=== PATIENT | female | born 1995 | race Caucasian/White ===

== ENCOUNTER → 2016-10-26 | Outpatient (CLI) | payer OTHER ==
[~2016-10-26] VITALS: Ht 162.6 cm; Wt 79.4 kg
[~2016-10-26] MED LIST: IFERCAP PO; MULT1TAB10 PO; NS 1,000 ML IV SCH; PROPOFOL 200 MG/20 ML VIAL As Ordered ONE
--- NOTE | 2016-10-26 15:13 | ROOR ---
Patient Name: Kenisha Washington Procedure Date: 10/26/2016 2:50 PM Date of : 1995 Age: 21 Room: [facility] Gender: Female Note Status: Finalized Procedure: Upper GI endoscopy Indications: Surveillance for malignancy due to personal history of Familial Adenomatous Polyposis Providers: Carlos GAUTHIER MD Referring MD: Jesusita SANDERS MD Requesting Provider: Medicines: Monitored Anesthesia Care Complications: No immediate complications. Procedure: Pre-Anesthesia Assessment: - The heart rate, respiratory rate, oxygen saturations, blood pressure, adequacy of pulmonary ventilation, and response to care were monitored throughout the procedure. The Endoscope was introduced through the mouth, and advanced to the second part of duodenum. The upper GI endoscopy was accomplished without difficulty. The patient tolerated the procedure well. Findings: Multiple small semi-sessile polyps with no bleeding and no stigmata of recent bleeding were found in the gastric fundus and in the gastric body. This was biopsied with a cold forceps for histology. The gastric antrum was normal. The examined esophagus was normal. The examined duodenum was normal. Impression: - Multiple (>100) gastric polyps. These all appear hyperplastic. No significant adenomatous polyp is seen. Many polyps were randomly Biopsied. - Normal antrum. - Normal esophagus. - Normal examined duodenum. Recommendation: - Await pathology results. - Telephone endoscopist for pathology results in 2 weeks. - Repeat upper endoscopy in 1 year for surveillance. Carlos Gauthier MD Carlos GAUTHIER MD 10/26/2016 3:13:21 PM This report has been signed electronically. Number of Addenda: 0 Note Initiated On: 10/26/2016 2:50 PM Estimated Blood Loss: Estimated blood loss: none.
--- NOTE | 2016-10-26 15:23 | ROOR ---
Patient Name: Kenisha Washington Procedure Date: 10/26/2016 2:52 PM Date of : 1995 Age: 21 Room: OP02 Gender: Female Note Status: Finalized Procedure: Pouchoscopy Indications: History of total colectomy, History of familial polyposis Providers: Carlos GAUTHIER MD Referring MD: Jesusita SANDERS MD Requesting Provider: Complications: No immediate complications. Procedure: The Endoscope was introduced through the anus and advanced to the J-pouch. The anoscopy was accomplished without difficulty. The patient tolerated the procedure well. The quality of the bowel preparation was good. Findings: Patient is status-post total colectomy with an ileal pouch-anal anastomosis. The perianal and digital rectal examinations were normal. The ileoanal pouch appeared normal. anastomosis is within 1 cm of anal canal. There are no polyps or lesions in the anal canal. Impression: - The ileoanal pouch is normal. - Anastomosis is within 1 cm of anal canal. There are no polyps or lesions in the anal canal. - No specimens collected. Recommendation: - Repeat post-surgical lower GI endoscopy in 1 year for surveillance. Carlos Gauthier MD Carlos GAUTHIER MD 10/26/2016 3:22:51 PM This report has been signed electronically. Number of Addenda: 0 Note Initiated On: 10/26/2016 2:52 PM Estimated Blood Loss: Estimated blood loss: none.
[2016-10-26 15:45] VITALS: BP 116/67
== END | disposition home or self-care (01) ==
LOC: M OPP 11:58
PROVIDERS: ATTEND Internal Medicine Gastroenterology
DX: Z09 Encounter for follow-up examination after completed treatment for conditions other than malignant neoplasm (principal); Z86.010 Personal history of colon polyps; Z90.49 Acquired absence of other specified parts of digestive tract; K31.7 Polyp of stomach and duodenum; D50.9 Iron deficiency anemia, unspecified; R06.83 Snoring; Z87.891 Personal history of nicotine dependence

== ENCOUNTER 2016-11-26 19:48 | Emergency (ER) | payer OTHER ==
[~2016-11-26] VITALS: Ht 162.6 cm; Wt 79.4 kg
[~2016-11-26 19:48] MED LIST changes: -NS 1,000 ML IV SCH; -PROPOFOL 200 MG/20 ML VIAL As Ordered ONE
[2016-11-26] MEDS ORDERED: NORCO 5/325MG TABLET (BULK) As Ordered ONE (20:22)
[2016-11-26] MEDS ORDERED: CORTISPORIN OTIC SOLN 10 ML BTL XX SCH (20:35)
--- NOTE | 2016-11-26 20:49 | EDDOCDS ---
Nurse's Notes [facility] Name: Kenisha Washington Age: 21 yrs Sex: Female : 1995 Arrival Date: 11/26/2016 Time: 19:48 Bed I8 / 16 Private MD: Diagnosis: Otitis externa Presentation: 11/26 19:52 Presenting complaint: Patient states: left ear pain since yesterday. Adult Sepsis ttb Screening: The patient does not have new or worsening altered mentation. Patient's respiratory rate is less than 22. Systolic blood pressure is greater than 100. Patient has a qSOFA score of 0- Negative Sepsis Screen. Suicide/Homicide risk assessment- the patient denies having any suicidal and/or homicidal ideations and does not present with any other emotional, behavioral or mental health complaints. Status: The patient is a dependent. Transition of care: patient was not received from another setting of care. 19:52 Acuity: BOOM Level 5 ttb 19:52 Method Of Arrival: Walkin/Carried/Asstd ttb Triage Assessment: 19:55 General: Appears in no apparent distress, uncomfortable, well nourished, well groomed, ttb Behavior is appropriate for age, cooperative, pleasant. Pain: Location: left ear, jaw Pain currently is 8 out of 10 on a pain scale. HIV screening NA for this visit Offered previously. Neurological: Level of Consciousness is awake, alert. EENT: Ear canal Reports pain in left ear. Respiratory: No deficits noted. Airway is patent. Derm: Skin is normal. 19:55 Injury Description: No known injury. 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 none - PMHx: papillary thyroid carcinoma; atrial septal defect as child; "familial adenosis polyposis"; anemia; - PSHx: open heart surgery 1997; colonectomy 2006; ileostomy placement and reversal; - Social history: Smoking status: Patient states was never smoker of tobacco. Patient/guardian denies using alcohol, street drugs, No barriers to communication noted, The patient speaks fluent Indonesian, Speaks appropriately for age. - Family history: Not pertinent. - : The pt / caregiver states he / she is not on anticoagulants. Home medication list is obtained from the patient. - Exposure Risk Screening:: None identified. Screenin:41 Screening information is obtained from the patient. Fall risk: No risks identified. rs3 Assistance ADL's: requires no assistance with activities of daily living. Abuse/DV Screen: The patient / caregiver reports he/she is: not in a situation that causes fear, pain or injury. Nutritional screening: No deficits noted. Advance Directives: Currently, there is no health care proxy. home support is adequate. Assessment: 20:40 General: Appears in no apparent distress, Behavior is appropriate for age, cooperative. rs3 Pain: Location: right ear and left ear. Neurological: Level of Consciousness is awake, alert. EENT: Tympanic membrane reddened on left ear bulging on left ear and right ear Ear canal erythematous L. Derm: Skin is pink, warm & dry. Vital Signs: 19:50 BP 136 / 66; Pulse 84; Resp 18; Temp 98.1(O); Pulse Ox 100% on R/A; Weight 79.38 kg fran (R); Height 64 in. (162.56 cm) (R); Pain 8/10; 19:50 Body Mass Index 30.04 (79.38 kg, 162.56 cm) fran Vitals: 19:50 Log In Time: November 26, 2016 at 19:50. fran ED Course: 19:50 Patient visited by Traci Lopez PCA. fran 19:50 Patient moved to Waiting fran 19:51 Patient moved to Pre RCE fran 19:53 Triage Initiated ttb 19:56 Patient visited by Fouzia Quiros RN. ttb 20:04 Patient moved to I8 / 16 ms18 20:05 Harvinder Spivey FNP is [facility]. ke 20:05 Patient visited by Harvinder Spivey FNP. ke 20:05 Patient visited by Harvinder Spivey FNP. ke 20:47 The patient / caregiver is instructed regarding the plan of care and ED course. mf4 20:47 No IV's were initiated during this patient's visit. No procedures done that require mf4 assistance. Administered Medications: 20:40 Drug: HYDROcodone-acetaminophen 4 pack- 1 packets [hydrocodone 5 mg-acetaminophen 325 rs3 mg tablet (1 tabs)] {Co-Signature: slmercedes (Leah Mc LPN).} Route: PO; 20:46 Drug: Eqdxnudi-Qoppvbqkl-NT 4 drps [cbntavni-jryxpeqif-kgcityqyx 3.5 mg/mL-10,000 mf4 unit/mL-1 % ear solution (4 drps)] Route: Otic; Site: both ears; Order Results: There are currently no results for this order. Outcome: 20:15 Discharge ordered by Provider. ke 20:47 Discharge Assessment: Patient awake, alert and oriented x 3. No cognitive and/or mf4 functional deficits noted. Patient verbalized understanding of disposition instructions. patient administered narcotics - no. The following High Risk Discharge criteria are identified: None. Discharged to home ambulatory, with significant other. Condition: good. Discharge instructions given to patient, significant other, Instructed on discharge instructions, medication usage, Demonstrated understanding of instructions, medications, Pt was receptive of discharge instructions/ teaching. Prescriptions given X escribed. No special radiology studies were completed. Property sent home with patient. 20:48 Patient left the ED. mf4 Signatures: Harvinder Spivey, CONCRETE PIPE PLANT SUPERVISOR CONCRETE PIPE PLANT SUPERVISOR Kimberli ChamberlainRN RN rs3 Traci Lopez, RN LABOR AND DELIVERY RN LABOR AND DELIVERY Eduin Burkett LPN LPN mf4 Fouzia Quiros RN RN ttb Thais Persaud,RN RN ms18 Leah Mc LPN [facility] MTDD
--- NOTE | 2016-11-26 20:49 | EDDOCDS ---
Physician Documentation [facility] Name: Kenisha Washington Age: 21 yrs Sex: Female : 1995 Arrival Date: 11/26/2016 Time: 19:48 Bed I8 / 16 Private MD: Disposition: 11/26/16 20:15 Discharged to Home/Self Care. Impression: Otitis externa. - Condition is Stable. - Discharge Instructions: Otitis Externa. - Prescriptions for Amoxicillin 500 mg Oral Capsule - take 1 capsule by ORAL route every 8 hours for 10 days; 30 tablet. Ibuprofen 600 mg Oral Tablet - take 1 tablet by ORAL route every 6 hours As needed take with food; 30 tablet. - Medication Reconciliation, Local Pharmacy Hours form. - Follow up: Private Physician; When: 2 - 3 days; Reason: Recheck today's complaints, Continuance of care. - Problem is an ongoing problem. - Symptoms are unchanged. - Notes: continue cortisporin ear drops 4 drops,4x a day for 7 days Historical: - Allergies: No known drug Allergies; - Home Meds: 1. none - PMHx: papillary thyroid carcinoma; atrial septal defect as child; "familial adenosis polyposis"; anemia; - PSHx: open heart surgery 1997; colonectomy 2006; ileostomy placement and reversal; - Social history: Smoking status: Patient states was never smoker of tobacco. Patient/guardian denies using alcohol, street drugs, No barriers to communication noted, The patient speaks fluent Japanese, Speaks appropriately for age. - Family history: Not pertinent. - : The pt / caregiver states he / she is not on anticoagulants. Home medication list is obtained from the patient. - Exposure Risk Screening:: None identified. 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 (162.56 cm) (R); Pain 8/10; 19:50 Body Mass Index 30.04 (79.38 kg, 162.56 cm) fran MDM: 20:15 Kmnukboc-Auevtiial-PB Drops 4 drps Otic once ordered. ke 20:15 HYDROcodone-acetaminophen 4 pack- 5 mg-325 mg 1 packets PO Per package directions; amador Dispense with patient. 1 po q4h prn for pain ordered. Administered Medications: 20:40 Drug: HYDROcodone-acetaminophen 4 pack- 1 packets [hydrocodone 5 mg-acetaminophen 325 rs3 mg tablet (1 tabs)] {Co-Signature: slm (Leah Mc LPN).} Route: PO; 20:46 Drug: Ifimaqgh-Vrdfyphjm-PM 4 drps [mlhpcnng-gonqryuqs-esphwwxpz 3.5 mg/mL-10,000 mf4 unit/mL-1 % ear solution (4 drps)] Route: Otic; Site: both ears; Signatures: Harvinder Spivey, RUBBER MOULDING MACHINE OPERATOR RUBBER MOULDING MACHINE OPERATOR Eduin Posada LPN LPN mf4 Fouzia Quiros RN RN ttb Kimberli Lacy RN rs3 Leah Mc LPN slm KAJALD
--- NOTE | 2016-11-28 21:49 | EDDOCDS ---
Nurse's Notes [facility] Name: Kenisha Washington Age: 21 yrs Sex: Female : 1995 Arrival Date: 11/26/2016 Time: 19:48 Bed I8 / 16 Private MD: Diagnosis: Otitis externa Presentation: 11/26 19:52 Presenting complaint: Patient states: left ear pain since yesterday. Adult Sepsis ttb Screening: The patient does not have new or worsening altered mentation. Patient's respiratory rate is less than 22. Systolic blood pressure is greater than 100. Patient has a qSOFA score of 0- Negative Sepsis Screen. Suicide/Homicide risk assessment- the patient denies having any suicidal and/or homicidal ideations and does not present with any other emotional, behavioral or mental health complaints. Status: The patient is a dependent. Transition of care: patient was not received from another setting of care. 19:52 Acuity: BOOM Level 5 ttb 19:52 Method Of Arrival: Walkin/Carried/Asstd ttb Triage Assessment: 19:55 General: Appears in no apparent distress, uncomfortable, well nourished, well groomed, ttb Behavior is appropriate for age, cooperative, pleasant. Pain: Location: left ear, jaw Pain currently is 8 out of 10 on a pain scale. HIV screening NA for this visit Offered previously. Neurological: Level of Consciousness is awake, alert. EENT: Ear canal Reports pain in left ear. Respiratory: No deficits noted. Airway is patent. Derm: Skin is normal. 19:55 Injury Description: No known injury. 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 none - PMHx: papillary thyroid carcinoma; atrial septal defect as child; "familial adenosis polyposis"; anemia; - PSHx: open heart surgery 1997; colonectomy 2006; ileostomy placement and reversal; - Social history: Smoking status: Patient states was never smoker of tobacco. Patient/guardian denies using alcohol, street drugs, No barriers to communication noted, The patient speaks fluent Czech, Speaks appropriately for age. - Family history: Not pertinent. - : The pt / caregiver states he / she is not on anticoagulants. Home medication list is obtained from the patient. - Exposure Risk Screening:: None identified. Screenin:41 Screening information is obtained from the patient. Fall risk: No risks identified. rs3 Assistance ADL's: requires no assistance with activities of daily living. Abuse/DV Screen: The patient / caregiver reports he/she is: not in a situation that causes fear, pain or injury. Nutritional screening: No deficits noted. Advance Directives: Currently, there is no health care proxy. home support is adequate. Assessment: 20:40 General: Appears in no apparent distress, Behavior is appropriate for age, cooperative. rs3 Pain: Location: right ear and left ear. Neurological: Level of Consciousness is awake, alert. EENT: Tympanic membrane reddened on left ear bulging on left ear and right ear Ear canal erythematous L. Derm: Skin is pink, warm & dry. Vital Signs: 19:50 BP 136 / 66; Pulse 84; Resp 18; Temp 98.1(O); Pulse Ox 100% on R/A; Weight 79.38 kg fran (R); Height 64 in. (162.56 cm) (R); Pain 8/10; 19:50 Body Mass Index 30.04 (79.38 kg, 162.56 cm) fran Vitals: 19:50 Log In Time: November 26, 2016 at 19:50. fran ED Course: 19:50 Patient visited by Traci Lopez PCA. fran 19:50 Patient moved to Waiting fran 19:51 Patient moved to Pre RCE fran 19:53 Triage Initiated ttb 19:56 Patient visited by Fouzia Quiros RN. ttb 20:04 Patient moved to I8 / 16 ms18 20:05 Harvinder Spivey FNP is [facility]. ke 20:05 Patient visited by Harvinder Spivey FNP. ke 20:05 Patient visited by Harvinder Spivey FNP. ke 20:47 The patient / caregiver is instructed regarding the plan of care and ED course. mf4 20:47 No IV's were initiated during this patient's visit. No procedures done that require mf4 assistance. 20:49 Patient name changed from Kenisha\\S\\\\S\\Felix\\S\\ to Kenisha\\S\\Mimi\\S\\Felix. EDMS 20:49 [facility] [place] was scanned into [employer] and attached to record. jp5 11/27 09:54 T-Sheet-- Draft Copy was scanned into [employer] and attached to record. gb Administered Medications: 11/26 20:40 Drug: HYDROcodone-acetaminophen 4 pack- 1 packets [hydrocodone 5 mg-acetaminophen 325 rs3 mg tablet (1 tabs)] {Co-Signature: slmercedes (Leah Mc LPN).} Route: PO; 20:46 Drug: Bqfastwx-Jwirhuxrl-KK 4 drps [pwiussne-rgrbydott-pysatxdvm 3.5 mg/mL-10,000 mf4 unit/mL-1 % ear solution (4 drps)] Route: Otic; Site: both ears; Order Results: There are currently no results for this order. Outcome: 20:15 Discharge ordered by Provider. amador 20:47 Discharge Assessment: Patient awake, alert and oriented x 3. No cognitive and/or mf4 functional deficits noted. Patient verbalized understanding of disposition instructions. patient administered narcotics - no. The following High Risk Discharge criteria are identified: None. Discharged to home ambulatory, with significant other. Condition: good. Discharge instructions given to patient, significant other, Instructed on discharge instructions, medication usage, Demonstrated understanding of instructions, medications, Pt was receptive of discharge instructions/ teaching. Prescriptions given X escribed. No special radiology studies were completed. Property sent home with patient. 20:48 Patient left the ED. mf4 Signatures: Dispatcher [employer] EDMS Trice Dhillon, Reg Reg gb Harvinder Spivey, ASPHALT SPREADER OPERATOR ASPHALT SPREADER OPERATOR Kimberli Chamberlain RN RN rs3 Traci Lopez, PRODUCE BUYER PRODUCE BUYER Eduin Burkett,EDUCATION FINANCE PROCESSOR EDUCATION FINANCE PROCESSOR mf4 Fouzia Quiros RN RN ttb Smith, Mallory, RN RN ms18 Eriberto Ash jp5 Leah knott Chart Complete MTDD
--- NOTE | 2016-11-28 21:49 | EDDOCDS ---
Physician Documentation [facility] Name: Kenisha Washington Age: 21 yrs Sex: Female : 1995 Arrival Date: 11/26/2016 Time: 19:48 Bed I8 / 16 Private MD: Disposition: 11/26/16 20:15 Discharged to Home/Self Care. Impression: Otitis externa. - Condition is Stable. - Discharge Instructions: Otitis Externa. - Prescriptions for Amoxicillin 500 mg Oral Capsule - take 1 capsule by ORAL route every 8 hours for 10 days; 30 tablet. Ibuprofen 600 mg Oral Tablet - take 1 tablet by ORAL route every 6 hours As needed take with food; 30 tablet. - Medication Reconciliation, Local Pharmacy Hours form. - Follow up: Private Physician; When: 2 - 3 days; Reason: Recheck today's complaints, Continuance of care. - Problem is an ongoing problem. - Symptoms are unchanged. - Notes: continue cortisporin ear drops 4 drops,4x a day for 7 days Historical: - Allergies: No known drug Allergies; - Home Meds: 1. none - PMHx: papillary thyroid carcinoma; atrial septal defect as child; "familial adenosis polyposis"; anemia; - PSHx: open heart surgery 1997; colonectomy 2006; ileostomy placement and reversal; - Social history: Smoking status: Patient states was never smoker of tobacco. Patient/guardian denies using alcohol, street drugs, No barriers to communication noted, The patient speaks fluent Azerbaijani, Speaks appropriately for age. - Family history: Not pertinent. - : The pt / caregiver states he / she is not on anticoagulants. Home medication list is obtained from the patient. - Exposure Risk Screening:: None identified. 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 (162.56 cm) (R); Pain 8/10; 19:50 Body Mass Index 30.04 (79.38 kg, 162.56 cm) fran MDM: 20:15 Rnjxfbdu-Jzgafhflq-MD Drops 4 drps Otic once ordered. ke 20:15 HYDROcodone-acetaminophen 4 pack- 5 mg-325 mg 1 packets PO Per package directions; amador Dispense with patient. 1 po q4h prn for pain ordered. 20:49 [facility] Payment Agreement was scanned into [employer] and attached to record. jp5 20:49 Financial registration complete. jp11/27 09:54 T-Sheet-- Draft Copy was scanned into [employer] and attached to record. gb Administered Medications: 11/26 20:40 Drug: HYDROcodone-acetaminophen 4 pack- 1 packets [hydrocodone 5 mg-acetaminophen 325 rs3 mg tablet (1 tabs)] {Co-Signature: slm (Leah Mc LPN).} Route: PO; 20:46 Drug: Kruxixww-Zvwsdzbme-PT 4 drps [kskphyki-bzbqrpfqw-hyhvvwqzf 3.5 mg/mL-10,000 mf4 unit/mL-1 % ear solution (4 drps)] Route: Otic; Site: both ears; Signatures: Trice Dhillon, Reg Reg Harvinder Kim, AUTOMAT CAR ATTENDANT AUTOMAT CAR ATTENDANT Eduin Posada,SOCIOLOGY PROFESSOR SOCIOLOGY PROFESSOR mf4 Fouzia Quiros, RN RN Eriberto Rodriges jp5 Kimberli Lacy RN rs3 Leah knott The chart was reviewed and I authenticate all verbal orders and agree with the evaluation and treatment provided.Attachments: 20:49 [facility] Payment Agreement jp5 11/27 09:54 T-Sheet-- Draft Copy gb Chart Complete MTDD
--- NOTE | 2016-11-28 21:49 | EDDOCDS ---
Physician Documentation [facility] Name: Kenisha Washington Age: 21 yrs Sex: Female : 1995 Arrival Date: 11/26/2016 Time: 19:48 Bed I8 / 16 Private MD: Disposition: 11/26/16 20:15 Discharged to Home/Self Care. Impression: Otitis externa. - Condition is Stable. - Discharge Instructions: Otitis Externa. - Prescriptions for Amoxicillin 500 mg Oral Capsule - take 1 capsule by ORAL route every 8 hours for 10 days; 30 tablet. Ibuprofen 600 mg Oral Tablet - take 1 tablet by ORAL route every 6 hours As needed take with food; 30 tablet. - Medication Reconciliation, Local Pharmacy Hours form. - Follow up: Private Physician; When: 2 - 3 days; Reason: Recheck today's complaints, Continuance of care. - Problem is an ongoing problem. - Symptoms are unchanged. - Notes: continue cortisporin ear drops 4 drops,4x a day for 7 days Historical: - Allergies: No known drug Allergies; - Home Meds: 1. none - PMHx: papillary thyroid carcinoma; atrial septal defect as child; "familial adenosis polyposis"; anemia; - PSHx: open heart surgery 1997; colonectomy 2006; ileostomy placement and reversal; - Social history: Smoking status: Patient states was never smoker of tobacco. Patient/guardian denies using alcohol, street drugs, No barriers to communication noted, The patient speaks fluent Bhutanese, Speaks appropriately for age. - Family history: Not pertinent. - : The pt / caregiver states he / she is not on anticoagulants. Home medication list is obtained from the patient. - Exposure Risk Screening:: None identified. 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 (162.56 cm) (R); Pain 8/10; 19:50 Body Mass Index 30.04 (79.38 kg, 162.56 cm) fran MDM: 20:15 Kikuduvh-Szvxkamkp-RU Drops 4 drps Otic once ordered. ke 20:15 HYDROcodone-acetaminophen 4 pack- 5 mg-325 mg 1 packets PO Per package directions; amador Dispense with patient. 1 po q4h prn for pain ordered. 20:49 [facility] Payment Agreement was scanned into [employer] and attached to record. jp5 20:49 Financial registration complete. jp11/27 09:54 T-Sheet-- Draft Copy was scanned into [employer] and attached to record. gb Administered Medications: 11/26 20:40 Drug: HYDROcodone-acetaminophen 4 pack- 1 packets [hydrocodone 5 mg-acetaminophen 325 rs3 mg tablet (1 tabs)] {Co-Signature: slm (Leah Mc LPN).} Route: PO; 20:46 Drug: Kasfijfm-Mtolvpimk-AZ 4 drps [jbosudmb-mkvvqiavh-ldahrmcuk 3.5 mg/mL-10,000 mf4 unit/mL-1 % ear solution (4 drps)] Route: Otic; Site: both ears; Signatures: Trice Dhillon, Reg Reg Harvinder Kim, EXECUTIVE MARKETING ASSISTANT EXECUTIVE MARKETING ASSISTANT Eduin Posada,CREDIT OPERATIONS SPECIALIST CREDIT OPERATIONS SPECIALIST mf4 Fouzia Quiros, RN RN Eriberto Rodriges jp5 Kimberli Lacy RN rs3 Leah knott The chart was reviewed and I authenticate all verbal orders and agree with the evaluation and treatment provided.Attachments: 20:49 [facility] Payment Agreement jp5 11/27 09:54 T-Sheet-- Draft Copy gb Chart Complete MTDD
== END 2016-11-26 20:48 | disposition home or self-care (01) ==
LOC: M ED 19:48
DX: H60.332 Swimmer's ear, left ear (principal); D64.9 Anemia, unspecified

== ENCOUNTER → 2016-11-29 | Outpatient (CLI) | payer OTHER ==
[~2016-11-29] MED LIST changes: +ISOVUE-370 76% 100ML VIAL (Q9967) As Ordered ONE
--- NOTE | 2016-11-30 07:23 | REP ---
CT NECK WITH CONTRAST: 11/29/2016 CLINICAL HISTORY: Papillary thyroid cancer familial adenomatous polyposis. COMPARISON: Thyroid ultrasound 08/11/2016. TECHNIQUE: The patient received a bolus 75 mL of Isovue 370 and scanning through the neck with coronal and sagittal reconstructions. FINDINGS: The base of the brain unremarkable. The calvarium at the skull base shows mastoids asymmetric better aeration right than left, on a developmental basis. Air fluid level in the right maxillary sinus representing acute sinusitis. The bone windows show the normal cervical lordosis slightly reduced. No compression deformity of destructive lesion. Posterior elements intact. Upper thoracic levels and portions of the first five paired ribs seen were unremarkable. Sternotomy wires seen in the upper manubrium. Medial clavicles were intact. Visualized thoracic vertebral levels also intact as are the lung apices. The nasopharyngeal airway is adequate without laryngeal abnormality. The subglottic trachea intact. Epiglottis and its folds unremarkable. The piriform sinuses and valleculae normal. Tongue base intact. The tonsillar pillars are unremarkable as are the parapharyngeal spaces and fat planes. No prevertebral swelling. The bony mandible intact. Submandibular glands and parotids are symmetric and normal bilaterally. The bilateral thyroid lobes are not enlarged but they each have multiple small nodules as seen on ultrasound, largest in the right lobe about 10 mm and the left about 12 mm and bilobed versus two adjacent smaller nodules. I do not see adenopathy in the anterior or posterior cervical chain of pathologic size. Anterior posterior strap muscles are unremarkable. No supraclavicular mass. IMPRESSION: 1. Multinodular thyroid without gross enlargement. The largest nodule on the right is about 10 mm, on the left a bilobed or two adjacent nodule measures 12 mm in maximum diameter. 2. No pathologic size cervical lymphadenopathy. 3. Submandibular and parotid glands, the airway, strap muscles and visualized bones grossly intact. Nothing else acute. Signed by Barrie Ruvalcaba MD 11/30/2016 04:21 P
== END ==
LOC: M RAD 17:22
DX: C73 Malignant neoplasm of thyroid gland (principal)

== ENCOUNTER → 2017-02-07 | Outpatient (REF) | payer OTHER ==
[~2017-02-07] MED LIST changes: -ISOVUE-370 76% 100ML VIAL (Q9967) As Ordered ONE
[2017-02-07 16:30] LABS: INR 1.08
[2017-02-07 16:33] LABS: ALBUMIN 3.5 GM/DL (3.2-5.2); ALBUMIN/GLOBULIN RATIO 0.95 (1.00-1.93); ALKALINE PHOSPHATASE 72 U/L (45-117); ALT/SGPT 29 U/L (12-78); ANION GAP 7 MEQ/L (8-16); AST/SGOT 15 U/L (15-37); BILIRUBIN,TOTAL 0.8 MG/DL (0.2-1.0); BLOOD UREA NITROGEN 11 MG/DL (7-18); CALCIUM LEVEL 8.3 MG/DL (8.5-10.1); CARBON DIOXIDE LEVEL 29 MEQ/L (21-32); CHLORIDE LEVEL 105 MEQ/L (98-107); GLOMERULAR FILTRATION RATE > 60.0 (>60); GLUCOSE, FASTING 85 MG/DL (70-105); SODIUM LEVEL 141 MEQ/L (136-145); TOTAL PROTEIN 7.2 GM/DL (6.4-8.2)
[2017-02-07 16:40] LABS: MEAN CORPUSCULAR HEMOGLOBIN 21.2 pg (27.0-33.0); MEAN CORPUSCULAR HGB CONC 30.1 g/dl (32.0-36.5); MEAN CORPUSCULAR VOLUME 71.2 fl (80.0-96.0); WHITE BLOOD COUNT 7.3 K/mm3 (4.0-10.0)
[2017-02-07 16:41] LABS: RED CELL DISTRIBUTION WIDTH 15.3 % (11.5-14.5)
[2017-02-07 20:20] LABS: BASOPHILS 1 % (0-4); EOSINOPHILS 5 % (0-5)
[2017-02-07 20:21] LABS: ANISOCYTOSIS 1+; HYPOCHROMASIA 2+; MICROCYTOSIS 1+
== END ==
LOC: M SFHCLERA 14:28
PROVIDERS: ATTEND Family Medicine
DX: Z01.818 Encounter for other preprocedural examination (principal)

== ENCOUNTER → 2017-03-17 | Outpatient (REF) | payer OTHER | LOC: M SFHCLERA 10:18 | PROVIDERS: ATTEND Physician Assistant | DX: J02.9 Acute pharyngitis, unspecified (principal) ==

== ENCOUNTER → 2017-04-06 | Outpatient (REF) | payer OTHER ==
[2017-04-06 17:04] LABS: BASO % 0.6 % (0.0-1.0); EOS # 0.1 K/mm3 (0.0-0.50); EOS % 1.1 % (0.0-3.0); LARGE UNSTAINED CELL # 0.2 K/mm3 (0.0-0.4); LARGE UNSTAINED CELL % 2.7 % (0.0-4.0); LYMPH % 28.8 % (24.0-44.0); MEAN CORPUSCULAR HEMOGLOBIN 21.4 pg (27.0-33.0); MEAN CORPUSCULAR HGB CONC 29.8 g/dl (32.0-36.5); MEAN CORPUSCULAR VOLUME 71.8 fl (80.0-96.0); MONO # 0.4 K/mm3 (0.0-0.8); MONO % 6.2 % (0.0-5.0); NEUTROPHILS # 4.3 K/mm3 (1.8-7.7); NEUTROPHILS % 60.6 % (36.0-66.0); PLATELET COUNT, AUTOMATED 408 k/mm3 (150-450); RED CELL DISTRIBUTION WIDTH 15.7 % (11.5-14.5); WHITE BLOOD COUNT 7.1 K/mm3 (4.0-10.0)
[2017-04-06 17:25] LABS: PERCENT SATURATION 3.4 % (13.2-37.4)
[2017-04-06 17:28] LABS: FOLATE 16.9 NG/ML
== END ==
LOC: M SFHCLERA 14:22
PROVIDERS: ATTEND Family Medicine
DX: D64.9 Anemia, unspecified (principal)

== ENCOUNTER → 2017-04-16 | Outpatient (REF) | payer OTHER | LOC: M SFHCLERA 11:31 | PROVIDERS: ATTEND Family Medicine | DX: E53.8 Deficiency of other specified B group vitamins (principal) ==

== ENCOUNTER → 2017-05-14 | Outpatient (REF) | payer OTHER | LOC: M SFHCLERA 08:18 | PROVIDERS: ATTEND Family Medicine | DX: C73 Malignant neoplasm of thyroid gland (principal) ==

== ENCOUNTER → 2017-06-15 | Outpatient (REF) | payer OTHER ==
[~2017-06-15] MED LIST changes: +LOMO2.5T PO; +PHEN1SUP6 PR; +PROM50TA4 PO; +SYNT125T PO; +ZOFR4TAB3 PO
== END ==
LOC: M SFHCLERA 17:49
PROVIDERS: ATTEND Family Medicine
DX: N92.6 Irregular menstruation, unspecified (principal)

== ENCOUNTER 2017-08-11 07:20 | Emergency (ER) | payer OTHER ==
[~2017-08-11] VITALS: Ht 160 cm; Wt 81.8 kg
[~2017-08-11 07:20] MED LIST changes: -LOMO2.5T PO; -PHEN1SUP6 PR; -PROM50TA4 PO; -SYNT125T PO; -ZOFR4TAB3 PO
[2017-08-11] MEDS ORDERED: ZOFR4TAB3 PO (07:45)
[2017-08-11] MEDS ORDERED: SYNT125T PO (07:45)
[2017-08-11] MEDS ORDERED: PROM50TA4 PO (07:45)
[2017-08-11] MEDS ORDERED: PHEN1SUP6 PR (07:45)
[2017-08-11] MEDS ORDERED: NS 1,000 ML IV ONE (08:15)
[2017-08-11] MEDS ORDERED: ONDANSETRON 4MG/2ML VIAL (J2405) IV ONE (08:15)
[2017-08-11 08:43] LABS: BASO % 0.4 % (0.0-1.0); EOS # 0.1 10^3/uL (0.0-0.50); EOS % 0.5 % (0.0-3.0); IMMATURE GRANULOCYTE % 0.3 % (0-0); LYMPH % 9.2 % (24.0-44.0); MEAN CORPUSCULAR HEMOGLOBIN 23.2 pg (27.0-33.0); MEAN CORPUSCULAR VOLUME 74.9 fl (80.0-96.0); MONO # 0.5 10^3/uL (0.0-0.8); MONO % 4.2 % (0.0-5.0); NEUTROPHILS # 9.5 10^3/uL (1.8-7.7); NEUTROPHILS % 85.4 % (36.0-66.0); PLATELET COUNT, AUTOMATED 383 10^3/uL (150-450); RED CELL DISTRIBUTION WIDTH 16.5 % (11.5-14.5); WHITE BLOOD COUNT 11.1 10^3/uL (4.0-10.0)
[2017-08-11 08:58] LABS: CONTROL LINE HCG INT CTR LINE PRESENT
[2017-08-11 09:13] LABS: ANION GAP 7 MEQ/L (8-16); BLOOD UREA NITROGEN 13 MG/DL (7-18); CALCIUM LEVEL 8.7 MG/DL (8.5-10.1); CARBON DIOXIDE LEVEL 25 MEQ/L (21-32); CHLORIDE LEVEL 107 MEQ/L (98-107); CREATININE FOR GFR 0.89 MG/DL (0.55-1.02); FREE T4 0.78 NG/DL (0.76-1.46); GLOMERULAR FILTRATION RATE > 60.0 (>60); GLUCOSE, FASTING 86 MG/DL (70-105); POTASSIUM SERUM 3.9 MEQ/L (3.5-5.1); SODIUM LEVEL 139 MEQ/L (136-145)
[2017-08-11] MEDS ORDERED: METOCLOPRAMIDE INJ 10MG/2ML VIAL (J2765) IV ONE (10:00)
[2017-08-11] MEDS ORDERED: LOMO2.5T PO (13:17)
[2017-08-11] MEDS ORDERED: LOMOTIL 2.5MG/0.025MG TABLET PO ONE (13:30)
[2017-08-11 14:09] VITALS: BP 102/55
== END 2017-08-11 14:12 | disposition home or self-care (01) ==
LOC: EDBD 07:20 → M ED 07:20
DX: K52.89 Other specified noninfective gastroenteritis and colitis (principal)
CPT/HCPCS: 80048; 84439; 84443; 84703; 85025; 87507; 93041; 96361; 96374; 96375; 99284; J2405; J2765